=== PATIENT | male | born 1965 | race Caucasian/White ===

== ENCOUNTER → 2020-08-12 | Outpatient (CLI) | payer OTHER ==
[~2020-08-12] MED LIST: GLUCOSAMINE &1 EAC1 PO; MINIPRIN81 MG PO; NAPROSYN375 MG PO; NORCO 5-325 TA1 EACH PO; OMEPRAZOLE MAGN20 MG PO; SIMVASTATIN40 MG PO; TRAMADOL 50 MG50 MG PO; TRICOR145 MG PO; VITAMIN D10000 UNIT PO; VITCB500GO PO
== END ==
LOC: M.LAB 08:41
PROVIDERS: ATTEND Orthopaedic Surgery
DX: Z01.812 Encounter for preprocedural laboratory examination (principal); Z20.828 Contact with and (suspected) exposure to other viral communicable diseases

== ENCOUNTER → 2021-04-07 | Outpatient (CLI) | payer OTHER ==
[2021-04-07] VITALS (7 sets, daily range): BP systolic 94–121; BP diastolic 62–82
[~2021-04-07] VITALS: Ht 170.2 cm; Wt 86.2 kg
[~2021-04-07] MED LIST changes: +ALLEGRA ALLERG180 MG PO; +ASA81BEC PO; +FISH OIL 1,001000 M3 PO; +FLEXERIL PO; +LIPITOR20 MG PO; +PEPCID20 MG PO; +VITAMIN D3125 MC1 PO
[2021-04-07 09:59] LABS: HEMATOCRIT 41.9 % (42.0-52.0); HEMOGLOBIN 14.1 gm/dL (14.0-18.0); MCH 29.7 pg (26.0-34.0); MCHC 33.6 g/dL (28.0-37.0); MCV 88.4 fL (80.0-100.0); MPV 8.9 fl. (7.2-11.1); RBC 4.74 mil/uL (4.50-6.00); RDW-CV 13.1 % (10.5-14.5); WBC 8.4 thou/uL (4.0-11.0)
[2021-04-07 10:15] LABS: ANION GAP 9 mmol/L (7-16); APTT 25.7 Seconds (25.0-31.3); BUN 16 mg/dL (7-18); CALCIUM 8.8 mg/dL (8.5-10.1); CHLORIDE 106 mmol/L (98-107); CO2 28 mmol/L (21-32); CREATININE 1.1 mg/dL (0.6-1.3); GLUCOSE 97 mg/dL (70-99); INR 0.9; POTASSIUM 4.1 mmol/L (3.5-5.1); SODIUM 143 mmol/L (136-145)
[2021-04-07 10:19] LABS: ALBUMIN 4.2 g/dL (3.4-5.0); ALKALINE PHOSPHATASE 98 U/L (46-116); CHOLESTEROL 149 mg/dL (<200); HDL CHOLESTEROL 33 mg/dL (>40); LDL CHOLESTEROL 82 mg/dL (<100); SGOT 26 U/L (15-37); SGPT 53 U/L (30-65); TC:HDL 4.5 Ratio (Not establshd); TOTAL BILIRUBIN 0.6 mg/dL (<0.1-1.0); TOTAL PROTEIN 7.3 g/dL (6.4-8.2); TRIGLYCERIDE 174 mg/dL (<150); VLDL 35 mg/dL (<40)
[2021-04-07 10:22] LABS: SERUM ASSESSMENT Clear
--- NOTE | 2021-04-07 10:24 | EKG ---
[place] [address] ELECTROCARDIOGRAM REPORT Name: TREVER BENITEZ Room: 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
--- NOTE | 2021-04-10 10:39 | CARD ---
[address] [address] CARDIAC CATH REPORT Name: TREVER BENITEZ Room: [facility]#: [id number] Admission: 04/07/21 Attend Phys: Jamie Vogt MD, F Discharge: Date of : 67 Report #: [id number] THIS REPORT FOR: cc: [place],Jamie Mendosa MD 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 Monitor- Janee Moser Procedures Performed Access- Right Radial Artery, LHC w/wo coronaries, Hemostasis- Vascband Indication Chest pain Risk Factors Hypercholesterolemia, Coronary Artery Disease Admission/Lab Medications/Medications given during procedure Heparin Unfract. Procedure Narrative The patient was brought electively to the Cardiac Catheterization Laboratory and was prepped and draped in a sterile manner. The right wrist was infiltrated with 2% Lidocaine subcutaneous anesthesia. IV conscious sedation was used throughout procedure with appropriate monitoring and was performed in the presence of a registered nurse who was an independent trained observer other than the physician performing the procedure. A 6 Fr Slender [place] sheath was inserted into the right radial artery. Coronary angiography was performed using coronary diagnostic catheters. The right coronary system was accessed and visualized with a Diagnostic 6 Fr JR 4 catheter. The left coronary system was accessed and visualized with a Diagnostic 6 Fr JL 4 catheter. The left ventricle was [place] [address] CARDIAC CATH REPORT Name: TREVER BENITEZ Room: [facility]#: [id number] Admission: 04/07/21 Attend Phys: Jamie Vogt MD, F Discharge: Date of : 67 Report #: [id number] a Diagnostic 6 Fr Pigtail catheter. Left ventricular/Aortic Valve gradient assessed via catheter pullback. Left ventriculogram was performed in HILL projection. Closure device was deployed with a 6 Fr vascband. The patient tolerated the procedure well and there were no complications associated with the procedure. There was no hematoma. Intraoperative Conscious Sedation Sedation start time: 11:06 Case end Time: 11:26 Versed 2.0 mg Fluoro Time: 2.3 minutes Dose: DAP 37027 cGycm2 656 mGy Contrast Type and Amount: Omnipaque 100 ml Coronary Angiography The patient's coronary anatomy is right dominant. Diagnostic Cath Left Main 0% stenosis LAD 30% proximal, and 50% stenosis just distal to the second diagonal branch Circumflex 0% stenosis OM2 medium sized vessel with 50% ostial stenosis Right Coronary 0% stenosis Left Ventriculography The left ventricle is normal in size with normal contractility. The left ventricular ejection fraction is estimated to be 50-55%. Left ventricular wall motion abnormalities are not present. There is no mitral insufficiency. Hemodynamics The aortic pressure is 102/62 mmHg with a mean of mmHg. The left ventricular pressure is 101/3 mmHg with a mean of mmHg. The left ventricular end diastolic pressure is 15 mmHg. There was no gradient across the aortic valve upon pullback. Pullback from the left ventricle to the aorta revealed no gradient across the aortic valve. Conclusion 1. mild CAD with 50% mid LAD stenosis 2. LVEF 50-55% [place] [address] CARDIAC CATH REPORT Name: TREVER BENITEZ Room: [facility]#: [id number] Admission: 04/07/21 Attend Phys: Jamie Vogt MD, F Discharge: Date of : 67 Report #: [id number] Recommendations Aggressive Medical Therapy <ELECTRONICALLY SIGNED> By: Jamie Vogt MD, FACC 04/10/21 1039 1039 1039Jamie Vogt MD, FACC /INF
== END | disposition home or self-care (01) ==
LOC: M.CL 07:50
PROVIDERS: ATTEND Internal Medicine Cardiovascular Disease
DX: R07.9 Chest pain, unspecified (principal); I25.10 Atherosclerotic heart disease of native coronary artery without angina pectoris; E78.00 Pure hypercholesterolemia, unspecified; E78.5 Hyperlipidemia, unspecified; K21.9 Gastro-esophageal reflux disease without esophagitis; Z98.890 Other specified postprocedural states; Z79.899 Other long term (current) drug therapy; Z88.8 Allergy status to other drugs, medicaments and biological substances; Z20.822 Contact with and (suspected) exposure to COVID-19